=== PATIENT | female | born 1965 | race Caucasian/White ===

== ENCOUNTER 2016-11-04 09:46 | Emergency (ER) | payer SELFPAY ==
[~2016-11-04 09:46] MED LIST: ABILIFY10 MG PO; ALPRAZOLAM0.5 MG PO; AMBIEN10 M1 PO; AMBIEN10 MG; AMBIEN10 MG PO; ATIVAN1 MG PO; BENTYL10 M1 PO; CLEOCIN HCL150 M1 PO; CLEOCIN HCL300 MG PO; CLINDAMYCIN HC150 M1 PO; COMPAZINE10 M PO; CORTISPORIN-TC10 M2 OT; CYMBALTA60 MG; ERY-TAB250 MG PO; FLAGYL500 MG PO; FLEXERIL10 MG PO; INDERAL10 MG PO; KLONOPIN1 MG PO; LEXAPRO20 MG PO; LOPERAMIDE2 M2 PO; LORTAB 5/500 TA1 TAB; MACROBID 100 M100 MG; NO HOME MEDICATION XX; NORCO 5/325 TAB1 TAB PO; NORCO 5/3251 TAB PO; NORCO 7.5-3251 EACH PO; PERCOCET 5/3251 TAB PO; PYRIDIUM200 MG PO; SEROQUEL400 MG PO; SEROQUEL50 MG PO; STRATTERA; TYLOX 5/500 CAP1 CAP; VALIUM5 MG PO; VICODIN 5/500 T1 TAB PO; XANAX0.5 MG PO; XANAX1 M1 PO; ZOFRAN ODT4 MG PO
[2016-11-04] MEDS ORDERED: VISTARIL25 M1 PO (12:33)
[2016-11-04] MEDS ORDERED: SEROQUEL25 M2 PO (12:33)
== END 2016-11-04 12:45 ==
LOC: EDMED 09:46
DX: F32.9 Major depressive disorder, single episode, unspecified (principal); F41.9 Anxiety disorder, unspecified; F22 Delusional disorders; Z90.710 Acquired absence of both cervix and uterus